=== PATIENT | male | born 1980 | race Two or more races ===

== ENCOUNTER → 2020-03-18 | Emergency (ER) | payer MEDICARE, MEDICAID ==
[~2020-03-18] VITALS: Ht 193 cm; Wt 165.1 kg
[2020-03-18 13:40] VITALS: BP 127/72
== END | disposition home or self-care (01) ==
LOC: ER 13:26
DX: J45.901 Unspecified asthma with (acute) exacerbation (principal); Z76.0 Encounter for issue of repeat prescription

== ENCOUNTER 2020-07-16 17:35 | Emergency (ER) | payer MEDICARE, MEDICAID ==
[~2020-07-16] VITALS: Ht 193 cm; Wt 163.3 kg
[2020-07-16 18:16] VITALS: BP 151/66
== END 2020-07-16 19:53 | disposition left against medical advice (07) ==
LOC: ER 17:35
DX: Z76.0 Encounter for issue of repeat prescription (principal); Z53.21 Procedure and treatment not carried out due to patient leaving prior to being seen by health care provider